=== PATIENT | male | born 1985 | race Caucasian/White ===

== ENCOUNTER 2017-11-20 12:30 | Emergency (ER) | payer BC ==
[2017-11-20 13:59] LABS: ALT/SGPT 37 U/L (12-78); AST/SGOT 34 U/L (15-37); Absolute Lymphocytes (CBC) 2.8 K/uL (0.7-4.9); Absolute Monocytes 0.7 K/uL (0.1-1.3); Absolute Neutrophil 4.5 K/uL (1.8-8.0); Albumin 3.9 g/dL (3.4-5.0); Alkaline Phosphatase 111 U/L (45-117); BUN Blood Urea Nitrogen 13 mg/dL (7-18); Basophils % 0.5 % (0-1.3); Bicarbonate 29 mmol/L (21-32); Bilirubin Direct 0.2 mg/dL (0-0.2); Bilirubin Total 0.6 mg/dL (0.2-1.0); Eosinophils % 1.6 % (0-4.4); Glucose Level 101 mg/dL (74-106); Hematocrit 42.7 % (39.6-49.0); Lipase 67 U/L (73-393); Lymphocytes % 34.4 % (15.3-44.8); MCH 29.9 pg (27.0-35.0); MCV 87.5 fL (80-100); MPV 8.1 fL (7.6-11.3); Monocytes % 8.8 % (3.3-12.3); Potassium 4.2 mmol/L (3.5-5.1); Protein, Total 7.8 g/dL (6.4-8.2); RBC Red Blood Cell Count 4.88 M/uL (4.33-5.43); Sodium Level 141 mmol/L (136-145)
--- NOTE | 2017-11-20 14:30 | RAD REPORT ---
EXAM DESCRIPTION: CT - Abdomen Pelvis W Contrast - 11/20/2017 2:09 pm CLINICAL HISTORY: Back pain, abdominal pain for 3 days, nausea and diarrhea, history pancreatitis COMPARISON: March 2017 TECHNIQUE: Biphasic, helical CT imaging of the abdomen and pelvis was performed following 100 ml non -ionic IV contrast. No oral contrast administered. All CT scans are performed using dose optimization technique as appropriate and may include automated exposure control or mA/KV adjustment according to patient size. FINDINGS: No suspicious findings in the lung bases. The liver and spleen show no suspicious findings. There is fat infiltration into the pancreatic paren chyma. There is a trace amount of edema in the peripancreatic tissues at the head body junction. This is a minimal finding but could indicate a very mild acute pancreatitis. The amount of soft tissue is not substantially different from March. Correlation is needed with any laboratory or exam finding s for pancreatitis. Gallbladder and biliary tree are also without suspicious finding. Symmetric renal function is seen with no hydronephrosis or suspicious renal mass. No bladder abnormal ity. No dilated bowel loops or bowel wall thickening. No free air, free fluid or pneumatosis. No hernia, mass or bulky lymphadenopathy. No adrenal abnormality. No suspicious bony findings. IMPRESSION: Trace amount of stranding is present in the peripancreatic tissues along the anterior he ad-body junction. The amount of soft tissue in this region has not changed. Very minimal pancreatitis would be possible and can be correlated with clinical and laboratory findin gs.
--- NOTE | 2017-11-20 14:45 | EDPHYS ---
Physician Documentation [facility] Name: Juvencio Cole Age: 31 yrs Sex: Male : 1985 Arrival Date: 11/20/2017 Time: 12:32 Bed 4 Private MD: Kevin Renteria H ED Physician Cuate Cortez HPI: 11/20 13:54 This 31 yrs old Male presents to ER via Ambulatory with complaints of jr8 Abdominal Pain, Back Pain, Diarrhea, Nausea. 13:54 The patient presents with abdominal pain in the upper abdomen. Onset: The jr8 symptoms/episode began/occurred gradually, 2 day(s) ago. The symptoms radiate to back. Associated signs and symptoms: Pertinent positives: nausea, vomiting, and diarrhea. The symptoms are described as steady, vague. Modifying factors: The symptoms are alleviated by nothing, the symptoms are aggravated by nothing. Severity of pain: At its worst the pain was moderate in the emergency department the pain is unchanged. The patient has experienced similar episodes in the past, a few times. The patient has not recently seen a physician. Patient stated that he has had diarrhea for the past week but now has resolved. Started with n/v and abdominal pain now. History of pancreatitis. Stated that he has not had a flare up in a while but feels that this pain is what he has experienced in the past . Historical: - Allergies: 12:52 NKA; iw - Home Meds: 12:52 Effexor XR Oral [Active]; Omeprazole Oral [Active]; atorvastatin oral oral [Active]; iw nabumetone oral oral [Active]; - PMHx: 12:52 Pancreatitis; iw - PSHx: 12:52 None; iw - Immunization history:: Adult Immunizations up to date. - Social history:: Smoking status: Patient/guardian denies using tobacco. - Ebola Screening: : No symptoms or risks identified at this time. ROS: 13:54 Eyes: Negative for injury, pain, redness, and discharge, ENT: Negative for injury, jr8 pain, and discharge, Neck: Negative for injury, pain, and swelling, Cardiovascular: Negative for chest pain, palpitations, and edema, Respiratory: Negative for shortness of breath, cough, wheezing, and pleuritic chest pain, Back: Negative for injury and pain, MS/Extremity: Negative for injury and deformity, Skin: Negative for injury, rash, and discoloration, Neuro: Negative for headache, weakness, numbness, tingling, and seizure. 13:54 Abdomen/GI: Positive for abdominal pain, nausea, vomiting, and diarrhea, Negative for abdominal distension, anorexia, dysphagia, hematemesis, black/tarry stool, rectal pain, rectal bleeding, bowel incontinence, flatulence. Exam: 13:54 Eyes: Pupils equal round and reactive to light, extra-ocular motions intact. Lids and jr8 lashes normal. Conjunctiva and sclera are non-icteric and not injected. Cornea within normal limits. Periorbital areas with no swelling, redness, or edema. ENT: Nares patent. No nasal discharge, no septal abnormalities noted. Tympanic membranes are normal and external auditory canals are clear. Oropharynx with no redness, swelling, or masses, exudates, or evidence of obstruction, uvula midline. Mucous membranes moist. Neck: Trachea midline, no thyromegaly or masses palpated, and no cervical lymphadenopathy. Supple, full range of motion without nuchal rigidity, or vertebral point tenderness. No Meningismus. Cardiovascular: Regular rate and rhythm with a normal S1 and S2. No gallops, murmurs, or rubs. Normal PMI, no JVD. No pulse deficits. Respiratory: Lungs have equal breath sounds bilaterally, clear to auscultation and percussion. No rales, rhonchi or wheezes noted. No increased work of breathing, no retractions or nasal flaring. Back: No spinal tenderness. No costovertebral tenderness. Full range of motion. Skin: Warm, dry with normal turgor. Normal color with no rashes, no lesions, and no evidence of cellulitis. MS/ Extremity: Pulses equal, no cyanosis. Neurovascular intact. Full, normal range of motion. Neuro: Awake and alert, GCS 15, oriented to person, place, time, and situation. Cranial nerves II-XII grossly intact. Motor strength 5/5 in all extremities. Sensory grossly intact. Cerebellar exam normal. Normal gait. 13:54 Abdomen/GI: Inspection: abdomen appears normal, Bowel sounds: active, all quadrants, Palpation: soft, in all quadrants, mild abdominal tenderness, in the mid upper abdomen, right lower quadrant , mass, is not appreciated, rebound tenderness, is not appreciated, voluntary guarding, is not appreciated, involuntary guarding, is not appreciated, no appreciated organomegaly, Indicators: McBurney's point is not tender, Adler's sign is negative, Rovsing's sign is negative, Obturator sign is negative, Psoas sign is negative, Liver: tenderness, is not appreciated. Vital Signs: 12:50 BP 126 / 83; Pulse 90; Resp 16; Temp 97.5(TE); Pulse Ox 98% on R/A; Weight 120.2 kg; iw Height 6 ft. 0 in. (182.88 cm); Pain 6/10; 13:30 BP 127 / 81; Pulse 83; Resp 16; Pulse Ox 97% ; jl7 14:00 BP 123 / 83; Pulse 86; Resp 16; Pulse Ox 97% ; jl7 15:01 BP 126 / 83; Pulse 83; Resp 16; Pulse Ox 97% ; jl7 12:50 Body Mass Index 35.94 (120.20 kg, 182.88 cm) iw MDM: 12:53 Patient medically screened. jr8 14:39 Data reviewed: vital signs, nurses notes, lab test result(s), radiologic studies, CT jr8 scan, and as a result, I will discharge patient. Data interpreted: Pulse oximetry: on room air is 97 %. Interpretation: normal. Counseling: I had a detailed discussion with the patient and/or guardian regarding: the historical points, exam findings, and any diagnostic results supporting the discharge/admit diagnosis, lab results, radiology results, the need for outpatient follow up, a chief of police, to return to the emergency department if symptoms worsen or persist or if there are any questions or concerns that arise at home. Response to treatment: the patient's symptoms have markedly improved after treatment, patient is well hydrated. ED course: Discussed with patient that he has mild pancreatitis again. Not significant enough for admission at this time. Recommend clear liquids for next 48-72 hours and then advance as tolerated. Will put on nausea and pain medicine in the meantime . 11/20 12:53 Order name: Basic Metabolic Panel; Complete Time: 14:8 11/20 12:53 Order name: CBC with Diff; Complete Time: 14:8 11/20 12:53 Order name: Creatinine for Radiology; Complete Time: 13:57 11/20 12:53 Order name: Hepatic Function; Complete Time: 14:8 11/20 12:53 Order name: Lipase; Complete Time: 14:09 8 11/20 13:14 Order name: CT Abd/Pelvis - W/Contrast; Complete Time: 14:33 8 11/20 12:53 Order name: IV Saline Lock; Complete Time: 13:34 8 11/20 12:53 Order name: Labs collected and sent; Complete Time: 13:34 8 Administered Medications: 13:30 Drug: NS 0.9% 1000 ml Route: IV; Rate: 1000 ml; Site: right antecubital; 7 14:30 Follow up: Response: No adverse reaction; IV Status: Completed infusion jl7 Disposition: 18:54 Co-signature as Attending Physician, Cuate Cortez MD I agree with the assessment and kdr plan of care. Disposition: 11/20/17 14:44 Discharged to Home. Impression: Acute pancreatitis. - Condition is Stable. - Discharge Instructions: Acute Pancreatitis. - Prescriptions for Tylenol- Codeine #3 300-30 mg Oral Tablet - take 2 tablets by ORAL route every 6 hours As needed; 20 tablet. Zofran 4 mg Oral Tablet - take 1 tablet by ORAL route every 12 hours As needed; 20 tablet. - Medication Reconciliation Form, Thank You Letter, Antibiotic Education, Prescription Opioid Use form. - Follow up: Kevin Renteria MD; When: 48 Hours; Reason: Recheck today's complaints, Continuance of care, Re-evaluation by your physician. - Problem is new. - Symptoms have improved. Signatures: Dispatcher [employer] EDHI Cuate Cortez MD MD [facility] Rebecca Lopes RN RN Anmol He PA PA jr8 Simon Yo RN RN jl7 Corrections: (The following items were deleted from the chart) 15:02 14:44 11/20/2017 14:44 Discharged to Home. Impression: Acute pancreatitis. Condition is jl7 Stable. Forms are Medication Reconciliation Form, Thank You Letter, Antibiotic Education, Prescription Opioid Use. Follow up: Kevin Renteria; When: 48 Hours; Reason: Recheck today's complaints, Continuance of care, Re-evaluation by your physician. Problem is new. Symptoms have improved. jr8
--- NOTE | 2017-11-20 14:45 | ER ---
Nurse's Notes [facility] Name: Juvencio Cole Age: 31 yrs Sex: Male : 1985 Arrival Date: 11/20/2017 Time: 12:32 Bed 4 Private MD: Kevin Renteria H Diagnosis: Acute pancreatitis Presentation: 11/20 12:48 Presenting complaint: Patient states: low back pain, abd pain X 3 days, also has nausea iw and diarrhea X 1 week, hx of pancreatitis , no vomiting. Transition of care: patient was not received from another setting of care. Onset of symptoms was November 17, 2017. Risk Assessment: Do you want to hurt yourself or someone else? Patient reports no desire to harm self or others. Initial Sepsis Screen: Does the patient meet any 2 criteria? No. Patient's initial sepsis screen is negative. Does the patient have a suspected source of infection? No. Patient's initial sepsis screen is negative. Care prior to arrival: None. 12:48 Method Of Arrival: Ambulatory iw 12:48 Acuity: CHUCK 3 iw Historical: - Allergies: 12:52 NKA; iw - Home Meds: 12:52 Effexor XR Oral [Active]; Omeprazole Oral [Active]; atorvastatin oral oral [Active]; iw nabumetone oral oral [Active]; - PMHx: 12:52 Pancreatitis; iw - PSHx: 12:52 None; iw - Immunization history:: Adult Immunizations up to date. - Social history:: Smoking status: Patient/guardian denies using tobacco. - Ebola Screening: : No symptoms or risks identified at this time. Screenin:00 Abuse screen: Denies threats or abuse. Denies injuries from another. Nutritional jl7 screening: No deficits noted. Tuberculosis screening: No symptoms or risk factors identified. Fall Risk IV access (20 points). Total Turcios Fall Scale indicates No Risk (0-24 pts). Assessment: 13:00 General: Appears in no apparent distress. uncomfortable, Behavior is calm, cooperative, jl7 appropriate for age. Pain: Complains of pain in epigastric area Pain radiates to low back area Pain currently is 6 out of 10 on a pain scale. Quality of pain is described as dull, Is continuous. Neuro: Level of Consciousness is awake, alert, obeys commands, Oriented to person, place, time, situation. Cardiovascular: Patient's skin is warm and dry. Respiratory: Airway is patent Respiratory effort is even, unlabored, Respiratory pattern is regular, symmetrical. GI: Bowel sounds present X 4 quads. Abd is soft and non tender. : No signs and/or symptoms were reported regarding the genitourinary system. EENT: No signs and/or symptoms were reported regarding the EENT system. Derm: Skin is pink, warm \T\ dry. Musculoskeletal: No signs and/or symptoms reported regarding the musculoskeletal system. 14:00 Reassessment: No changes from previously documented assessment. Patient and/or family jl7 updated on plan of care and expected duration. Pain level reassessed. Patient is alert, oriented x 3, equal unlabored respirations, skin warm/dry/pink. Vital Signs: 12:50 BP 126 / 83; Pulse 90; Resp 16; Temp 97.5(TE); Pulse Ox 98% on R/A; Weight 120.2 kg; iw Height 6 ft. 0 in. (182.88 cm); Pain 6/10; 13:30 BP 127 / 81; Pulse 83; Resp 16; Pulse Ox 97% ; jl7 14:00 BP 123 / 83; Pulse 86; Resp 16; Pulse Ox 97% ; jl7 15:01 BP 126 / 83; Pulse 83; Resp 16; Pulse Ox 97% ; jl7 12:50 Body Mass Index 35.94 (120.20 kg, 182.88 cm) iw ED Course: 12:32 Patient arrived in ED. rg4 12:32 Kevin Renteria MD is Private Physician. rg4 12:36 Cuate Cortez MD is Attending Physician. kdr 12:39 Anmol Hines PA is PHCP. jr8 12:50 Triage completed. iw 12:50 Arm band placed on. iw 12:56 Simon Yo, BIJU is Primary Nurse. jl7 13:10 Missed attempt(s): 20 gauge in right antecubital area. Bleeding controlled, band aid jl7 applied, catheter tip intact. 13:10 No provider procedures requiring assistance completed. jl7 13:18 Radiology exam delayed due to lab results not completed at this time. (BUN/Creatinine). vr 13:33 Initial lab(s) drawn, by me, sent to lab. Inserted saline lock: 22 gauge in right jb1 antecubital area, using aseptic technique. Blood collected. 13:[address] via wheelchair. vr 14:00 Patient has correct armband on for positive identification. Placed in gown. Bed in low jl7 position. Call light in reach. Side rails up X 1. Pulse ox on. NIBP on. Warm blanket given. 14:07 CT completed. Patient tolerated procedure well. Patient moved back from CT. vr 14:09 CT Abd/Pelvis - W/Contrast In Process Unspecified. EDMS 14:44 Kevin Renteria MD is Referral Physician. jr8 15:01 IV discontinued, intact, bleeding controlled, No redness/swelling at site. Pressure jl7 dressing applied. Administered Medications: 13:30 Drug: NS 0.9% 1000 ml Route: IV; Rate: 1000 ml; Site: right antecubital; jl7 14:30 Follow up: Response: No adverse reaction; IV Status: Completed infusion jl7 Outcome: 14:44 Discharge ordered by . jr8 15:01 Discharged to home ambulatory. jl7 15:01 Condition: stable 15:01 Discharge instructions given to patient, Instructed on discharge instructions, follow up and referral plans. medication usage, Demonstrated understanding of instructions, follow-up care, medications, Prescriptions given X 2. 15:02 Patient left the ED. jl7 Signatures: Dispatcher [employer] EDNE Juan Champagne jb1 Cuate Cortez MD MD kdr Williams, Irene, Jeannine Mckeon RN vr Anmol Hines PA PA jr8 Garcia, Rubi rg4 Leal, Jahala, RN RN jl7
[2017-11-20 15:07] VITALS: TEMP 97.5
[2017-11-20 15:08] VITALS: O2SAT 97
[2017-11-20 15:10] VITALS: BP 126/83
== END 2017-11-20 15:02 | disposition home or self-care (01) ==
LOC: ER 12:30
DX: K85.90 Acute pancreatitis without necrosis or infection, unspecified (principal)
CPT/HCPCS: 36415; 74177; 80048; 80076; 83690; 85025; 96360; 99284; Q9967

== ENCOUNTER 2017-12-24 05:48 | Inpatient (IN) | payer BC ==
[2017-12-24 06:23] LABS: Absolute Lymphocytes (CBC) 2.1 K/uL (0.7-4.9); Absolute Monocytes 1.4 K/uL (0.1-1.3); Absolute Neutrophil 10.1 K/uL (1.8-8.0); Basophils % 0.4 % (0-1.3); Lymphocytes % 15.1 % (15.3-44.8); MCH 30.8 pg (27.0-35.0); Monocytes % 9.9 % (3.3-12.3); RBC Red Blood Cell Count 4.77 M/uL (4.33-5.43)
[2017-12-24 06:28] LABS: Albumin 3.7 g/dL (3.4-5.0); Bilirubin Direct 0.3 mg/dL (0-0.2); Bilirubin Total 0.8 mg/dL (0.2-1.0); Potassium 3.8 mmol/L (3.5-5.1); Protein, Total 7.7 g/dL (6.4-8.2)
[2017-12-24] MEDS ORDERED: FENTANYL CITR 100 MCG/2 ML ONE (07:14)
[2017-12-24] MEDS ORDERED: NA CHLORIDE 0.9% 1,000 ML ONE (07:14)
[2017-12-24] MEDS ORDERED: PROMETHAZINE 25 MG/ML VIAL ONE (07:20)
[2017-12-24 07:45] LABS: Urine Blood TRACE (NEG); Urine Glucose NEGATIVE (NEG); Urine Protein NEGATIVE (NEG); Urine Specific Gravity 1.025 (1.005-1.030)
[2017-12-24 07:49] LABS: Urine Amorphous Sediment 1+ /HPF (NONE SEEN); Urine Bacteria NONE SEEN /HPF (NONE SEEN); Urine Culture Reflex Order NOT NEEDED; Urine Mucus MOD /HPF (NONE SEEN); Urine RBC <5 /HPF (NONE SEEN)
--- NOTE | 2017-12-24 09:04 | RAD REPORT ---
EXAM DESCRIPTION: CTAbdomen Pelvis W Contrast - 12/24/2017 8:40 am CLINICAL HISTORY: Abdominal pain. ABD PAIN COMPARISON: Abdomen Pelvis W Contrast dated 11/20/2017; Abdomen Pelvis W Contrast dated 04/10/2017 TECHNIQUE: Biphasic CT imaging of the abdomen and pelvis was performed with 100 ml non-ionic IV cont rast. All CT scans are performed using dose optimization technique as appropriate and may include automated exposure control or mA/KV adjustment according to patient size. FINDINGS: The lung bases are clear. Mild diffuse fatty liver is present. The spleen, adrenal glands and kidneys are within normal limits. Pancreatic atrophy is present. No bowel obstruction, free air, free fluid or abscess. Prominent thickening of the colon is present w ith multiple pericolonic lymph nodes seen. The findings are most severe in the region of the cecum bu t involves the ascending colon and transverse colon. The appendix is normal. No suspicious bony findings. IMPRESSION: Mild to moderate colitis. Fatty liver.
--- NOTE | 2017-12-24 09:10 | ER ---
Nurse's Notes [facility] Name: Juvencio Cole Age: 32 yrs Sex: Male : 1985 Arrival Date: 12/24/2017 Time: 05:49 Bed 21 Private MD: Diagnosis: Left sided colitis with rectal bleeding Presentation: 12/24 05:55 Presenting complaint: Patient states: States bloody stools since 1945, bright red lp1 blood; Diarrhea x4, vomited x1; Mid abdominal pain; Denies any fever. Transition of care: patient was not received from another setting of care. Onset of symptoms was December 23, 2017 at 19:45. Risk Assessment: Do you want to hurt yourself or someone else? Patient reports no desire to harm self or others. Initial Sepsis Screen: Does the patient meet any 2 criteria? No. Patient's initial sepsis screen is negative. Does the patient have a suspected source of infection? No. Patient's initial sepsis screen is negative. Care prior to arrival: None. 05:55 Method Of Arrival: Ambulatory lp1 05:55 Acuity: CHUCK 3 lp1 Triage Assessment: 06:02 General: Appears in no apparent distress. Behavior is calm, cooperative. Pain: ak1 Complains of pain in abdomen. EENT: No signs and/or symptoms were reported regarding the EENT system. Neuro: No deficits noted. Cardiovascular: No deficits noted. Respiratory: No deficits noted. GI: Abdomen is round non-distended, Reports diarrhea, bloody stool, nausea, vomiting, since yesterday. : No signs and/or symptoms were reported regarding the genitourinary system. Derm: No signs and/or symptoms reported regarding the dermatologic system. Musculoskeletal: No signs and/or symptoms reported regarding the musculoskeletal system. Historical: - Allergies: 05:58 NKA; lp1 - Home Meds: 05:58 atorvastatin Oral [Active]; Effexor XR Oral [Active]; Omeprazole Oral [Active]; lp1 - PMHx: 05:58 Pancreatitis; Hyperlipidemia; GERD; lp1 - PSHx: 05:58 None; lp1 - Immunization history:: Adult Immunizations up to date. - Social history:: Smoking status: Patient/guardian denies using tobacco. - Ebola Screening: : No symptoms or risks identified at this time. Screenin:59 Abuse screen: Denies threats or abuse. Denies injuries from another. Nutritional lp1 screening: No deficits noted. Tuberculosis screening: No symptoms or risk factors identified. Fall Risk None identified. Assessment: 06:03 Reassessment: Patient appears in no apparent distress at this time. see triage ak1 assessment. 06:24 Reassessment: Patient appears in no apparent distress at this time. No changes from ak1 previously documented assessment. Patient is alert, oriented x 3, equal unlabored respirations, skin warm/dry/pink. pt attempted to give a stool sample but was unsuccessful. will continue to monitor. . 07:00 Reassessment: report given to Soha Carter RN and Simon IVY. ak1 07:21 Reassessment: Patient appears in no apparent distress at this time. No changes from tw2 previously documented assessment. Patient and/or family updated on plan of care and expected duration. Pain level reassessed. Patient is alert, oriented x 3, equal unlabored respirations, skin warm/dry/pink. notified CAT scan that pt has completed contrast at this time. 07:45 Reassessment: Patient appears in no apparent distress at this time. No changes from tw2 previously documented assessment. Patient and/or family updated on plan of care and expected duration. Pain level reassessed. Patient is alert, oriented x 3, equal unlabored respirations, skin warm/dry/pink. 08:33 Reassessment: Patient appears in no apparent distress at this time. Patient and/or tw2 family updated on plan of care and expected duration. Pain level reassessed. Patient is alert, oriented x 3, equal unlabored respirations, skin warm/dry/pink. Patient states feeling better. 09:44 Reassessment: per orders, Flagyl Abx was ordered and administered PRIOR to blood tw2 cultures being ordered. 09:48 Reassessment: Patient appears in no apparent distress at this time. Patient and/or tw2 family updated on plan of care and expected duration. Pain level reassessed. Patient is alert, oriented x 3, equal unlabored respirations, skin warm/dry/pink. Patient states feeling better. 10:50 Reassessment: Patient appears in no apparent distress at this time. No changes from tw2 previously documented assessment. Patient and/or family updated on plan of care and expected duration. Pain level reassessed. Patient is alert, oriented x 3, equal unlabored respirations, skin warm/dry/pink. Vital Signs: 05:58 BP 137 / 78; Pulse 99; Resp 18; Temp 99.3; Pulse Ox 94% on R/A; Weight 120.2 kg; Height lp1 6 ft. 0 in. (182.88 cm); Pain 7/10; 06:25 BP 132 / 87; Pulse 92; Resp 18; Pulse Ox 97% on R/A; mt 06:54 BP 128 / 83; Pulse 85; Resp 18; Pulse Ox 96% on R/A; ak1 07:43 BP 132 / 80; Pulse 60; Resp 17; Pulse Ox 95% on R/A; tw2 08:32 BP 119 / 71; Pulse 96; Resp 17; Pulse Ox 100% on R/A; tw2 09:47 BP 103 / 52; Pulse 85; Resp 17; Pulse Ox 100% on R/A; tw2 10:50 BP 114 / 68; Pulse 84; Resp 17; Pulse Ox 96% on R/A; tw2 11:40 BP 115 / 73; Pulse 86; Resp 17; Pulse Ox 95% on R/A; tw2 05:58 Body Mass Index 35.94 (120.20 kg, 182.88 cm) lp1 ED Course: 05:49 Patient arrived in ED. ds1 05:54 Sarai Robert RN is Primary Nurse. ak1 05:57 Triage completed. lp1 05:59 Arm band placed on left wrist. lp1 06:01 Patient has correct armband on for positive identification. Placed in gown. Bed in low ak1 position. Call light in reach. Side rails up X 1. Pulse ox on. NIBP on. Warm blanket given. 06:01 Inserted saline lock: 20 gauge in right antecubital area, using aseptic technique. mt Blood collected. 06:06 Soraida Vyas FNP-C [facility]. snw 06:06 Zachary Albert MD is Attending Physician. snw 07:21 Primary Nurse role handed off by Sarai Robert, BIJU tw2 07:21 Soha Mann RN is Primary Nurse. tw2 07:23 Urine collected: clean catch specimen, clear, Stool sent to lab. jl7 08:38 CT completed. Patient tolerated procedure well. Patient moved to CT via wheelchair. sj Patient moved back from CT. 08:40 CT Abd/Pelvis - W/Contrast In Process Unspecified. EDMS 09:09 Luigi Nixon DO is Hospitalizing Provider. snw 11:41 Awaiting: attempted to call report, nurse is getting another pt and cannot take report tw2 at this time. 12:34 No provider procedures requiring assistance completed. Patient admitted, IV remains in tw2 place. Administered Medications: 07:10 Drug: fentaNYL (PF) 25 mcg Route: IVP; Site: right antecubital; tw2 08:10 Follow up: Response: No adverse reaction; Pain is decreased tw2 07:12 Drug: NS 0.9% 1000 ml Route: IV; Rate: 125 ml/hr; Site: right antecubital; tw2 12:33 Follow up: IV Status: Infusion continued upon admission tw2 07:18 Drug: Phenergan 12.5 mg Route: IVP; Site: right antecubital; tw2 09:16 Follow up: Response: No adverse reaction; Nausea is decreased tw2 09:15 Drug: Flagyl 500 mg Volume: 100 ml; Route: IVPB; Rate: 200 ml/hr; Infused Over: 30 tw2 mins; Site: right antecubital; 09:46 Follow up: Response: No adverse reaction; No adverse reaction, blood cultures were tw2 ordered AFTER order to administer abx; IV Status: Completed infusion 09:26 Drug: morphine 4 mg Route: IVP; Site: right antecubital; jl7 09:48 Follow up: Response: No adverse reaction; Pain is decreased tw2 10:16 Drug: Zofran 4 mg {Note: cipro was paused prior to, iv access was flushed with 10 ml NS tw2 before and after administration.} Route: IVP; Site: right antecubital; 11:06 Follow up: Response: No adverse reaction; Nausea is decreased tw2 10:30 Drug: Cipro 400 mg Volume: 200 ml; Route: IVPB; Infused Over: 60 mins; Site: right tw2 antecubital; 11:41 Follow up: Response: No adverse reaction; IV Status: Completed infusion tw2 Outcome: 09:09 Decision to Hospitalize by Provider. snw 12:34 Admitted to Med/surg accompanied by tech, via wheelchair, room 411, Report called to tw2 BIJU Ruffin 12:34 Condition: stable 12:34 Instructed on the need for admit. 12:44 Patient left the ED. jairo Signatures: Dispatcher [employer] EDSoraida Bejarano, END USER CONSULTANT-C END USER CONSULTANT-Mariya Rogers, Tanya ds1 Cassandra Vizcaino RN RN lp1 Sarai Robert RN RN ak1 Soha Mann RN RN tw2 Simon Yo RN RN jl7 Palma Lujan tx
--- NOTE | 2017-12-24 09:10 | EDPHYS ---
Physician Documentation [facility] Name: Juvencio Cole Age: 32 yrs Sex: Male : 1985 Arrival Date: 12/24/2017 Time: 05:49 Bed 21 Private MD: ED Physician Zachary Albert HPI: 12/24 07:24 This 32 yrs old Male presents to ER via Ambulatory with complaints of Bloody snw Stools, Abdominal Pain, Vomiting. 07:24 The patient presents with abdominal pain in the epigastric area, in the upper abdomen. snw Onset: The symptoms/episode began/occurred gradually, 1 week(s) ago, and became worse and became persistent. The symptoms do not radiate. Associated signs and symptoms: Pertinent positives: nausea, vomiting, and diarrhea, bloody stools. The symptoms are described as crampy. Severity of pain: At its worst the pain was moderate severe. The patient has experienced similar episodes in the past, Pt with hx of pancreatitis, sees Dr. Renteria. No gallstones, no ETOH. . It is unknown whether or not the patient has recently seen a physician. Historical: - Allergies: 05:58 NKA; lp1 - Home Meds: 05:58 atorvastatin Oral [Active]; Effexor XR Oral [Active]; Omeprazole Oral [Active]; lp1 - PMHx: 05:58 Pancreatitis; Hyperlipidemia; GERD; lp1 - PSHx: 05:58 None; lp1 - Immunization history:: Adult Immunizations up to date. - Social history:: Smoking status: Patient/guardian denies using tobacco. - Ebola Screening: : No symptoms or risks identified at this time. ROS: 07:23 Constitutional: Negative for fever, chills, and weight loss, Eyes: Negative for injury, snw pain, redness, and discharge, ENT: Negative for injury, pain, and discharge, Neck: Negative for injury, pain, and swelling, Cardiovascular: Negative for chest pain, palpitations, and edema, Respiratory: Negative for shortness of breath, cough, wheezing, and pleuritic chest pain, Back: Negative for injury and pain, : Negative for injury, bleeding, discharge, and swelling, MS/Extremity: Negative for injury and deformity, Skin: Negative for injury, rash, and discoloration, Neuro: Negative for headache, weakness, numbness, tingling, and seizure. 07:23 Abdomen/GI: Positive for abdominal pain, nausea, vomiting, and diarrhea, abdominal cramps, of the epigastric area, right upper quadrant and left upper quadrant. Exam: 07:23 Constitutional: This is a well developed, well nourished patient who is awake, alert, snw and in no acute distress. Head/Face: Normocephalic, atraumatic. Eyes: Pupils equal round and reactive to light, extra-ocular motions intact. Lids and lashes normal. Conjunctiva and sclera are non-icteric and not injected. Cornea within normal limits. Periorbital areas with no swelling, redness, or edema. ENT: Nares patent. No nasal discharge, no septal abnormalities noted. Tympanic membranes are normal and external auditory canals are clear. Oropharynx with no redness, swelling, or masses, exudates, or evidence of obstruction, uvula midline. Mucous membranes moist. Neck: Trachea midline, no thyromegaly or masses palpated, and no cervical lymphadenopathy. Supple, full range of motion without nuchal rigidity, or vertebral point tenderness. No Meningismus. Chest/axilla: Normal chest wall appearance and motion. Nontender with no deformity. No lesions are appreciated. Cardiovascular: Regular rate and rhythm with a normal S1 and S2. No gallops, murmurs, or rubs. Normal PMI, no JVD. No pulse deficits. Respiratory: Lungs have equal breath sounds bilaterally, clear to auscultation and percussion. No rales, rhonchi or wheezes noted. No increased work of breathing, no retractions or nasal flaring. Back: No spinal tenderness. No costovertebral tenderness. Full range of motion. Male : Normal genitalia with no discharge or lesions. Skin: Warm, dry with normal turgor. Normal color with no rashes, no lesions, and no evidence of cellulitis. MS/ Extremity: Pulses equal, no cyanosis. Neurovascular intact. Full, normal range of motion. Neuro: Awake and alert, GCS 15, oriented to person, place, time, and situation. Cranial nerves II-XII grossly intact. Motor strength 5/5 in all extremities. Sensory grossly intact. Cerebellar exam normal. Normal gait. Psych: Awake, alert, with orientation to person, place and time. Behavior, mood, and affect are within normal limits. 07:23 Abdomen/GI: Inspection: abdomen appears normal, Bowel sounds: hyperactive, Palpation: mild abdominal tenderness, in the epigastric area, right upper quadrant and left upper quadrant, bloody, mucoid stool. Vital Signs: 05:58 BP 137 / 78; Pulse 99; Resp 18; Temp 99.3; Pulse Ox 94% on R/A; Weight 120.2 kg; Height lp1 6 ft. 0 in. (182.88 cm); Pain 7/10; 06:25 BP 132 / 87; Pulse 92; Resp 18; Pulse Ox 97% on R/A; mt 06:54 BP 128 / 83; Pulse 85; Resp 18; Pulse Ox 96% on R/A; ak1 07:43 BP 132 / 80; Pulse 60; Resp 17; Pulse Ox 95% on R/A; tw2 08:32 BP 119 / 71; Pulse 96; Resp 17; Pulse Ox 100% on R/A; tw2 09:47 BP 103 / 52; Pulse 85; Resp 17; Pulse Ox 100% on R/A; tw2 10:50 BP 114 / 68; Pulse 84; Resp 17; Pulse Ox 96% on R/A; tw2 11:40 BP 115 / 73; Pulse 86; Resp 17; Pulse Ox 95% on R/A; tw2 05:58 Body Mass Index 35.94 (120.20 kg, 182.88 cm) lp1 MDM: 06:06 Patient medically screened. snw 09:08 Data reviewed: vital signs, nurses notes. Data interpreted: Pulse oximetry: on room air snw is 100 %. Interpretation: normal. Counseling: I had a detailed discussion with the patient and/or guardian regarding: the historical points, exam findings, and any diagnostic results supporting the discharge/admit diagnosis, lab results, radiology results, the need for further work-up and treatment in the hospital. Physician consultation: Luigi Nixon DO was called at 09:08, was contacted at 09:08, regarding admission, to the medical/surgical unit. 09:23 Physician consultation: and will see patient in ED, would like further tests performed, snw Blood culture, urine culture, procalcitonin. 12/24 05:54 Order name: Amylase, Serum; Complete Time: 06:36 ak1 12/24 05:54 Order name: Basic Metabolic Panel; Complete Time: 06:36 ct12/24 05:54 Order name: CBC with Diff; Complete Time: 06:36 ct12/24 05:54 Order name: Creatinine for Radiology; Complete Time: 06:36 ct12/24 05:54 Order name: Hepatic Function; Complete Time: 06:36 ct12/24 05:54 Order name: Lipase; Complete Time: 06:36 [facility] 12/24 05:54 Order name: Urine Microscopic Only; Complete Time: 07:59 [facility] 12/24 07:17 Order name: Occult Blood [facility] 12/24 07:17 Order name: Fecal Leukocyte Stain [facility] 12/24 07:17 Order name: CDIFF [facility] 12/24 07:18 Order name: Stool Culture [facility] 12/24 07:35 Order name: Urine Dipstick--Ancillary (enter results); Complete Time: 07:47 bd 12/24 09:23 Order name: Blood Culture Adult (2) [facility] 12/24 09:23 Order name: Urine Culture [facility] 12/24 05:54 Order name: IV Saline Lock; Complete Time: 06:00 ct12/24 05:54 Order name: Labs collected and sent; Complete Time: 06:00 ct12/24 05:54 Order name: Urine Dipstick-Ancillary (obtain specimen); Complete Time: 07:23 [facility] 12/24 06:57 Order name: NPO; Complete Time: 07:19 [facility] 12/24 06:57 Order name: CT Abd/Pelvis - W/Contrast; Complete Time: 09:05 [facility] 12/24 09:23 Order name: Procalcitonin [facility] 12/24 11:27 Order name: Procalcitonin; Complete Time: 11:31 EDMS Administered Medications: 07:10 Drug: fentaNYL (PF) 25 mcg Route: IVP; Site: right antecubital; tw2 08:10 Follow up: Response: No adverse reaction; Pain is decreased tw2 07:12 Drug: NS 0.9% 1000 ml Route: IV; Rate: 125 ml/hr; Site: right antecubital; tw2 12:33 Follow up: IV Status: Infusion continued upon admission tw2 07:18 Drug: Phenergan 12.5 mg Route: IVP; Site: right antecubital; tw2 09:16 Follow up: Response: No adverse reaction; Nausea is decreased tw2 09:15 Drug: Flagyl 500 mg Volume: 100 ml; Route: IVPB; Rate: 200 ml/hr; Infused Over: 30 tw2 mins; Site: right antecubital; 09:46 Follow up: Response: No adverse reaction; No adverse reaction, blood cultures were tw2 ordered AFTER order to administer abx; IV Status: Completed infusion 09:26 Drug: morphine 4 mg Route: IVP; Site: right antecubital; jl7 09:48 Follow up: Response: No adverse reaction; Pain is decreased tw2 10:16 Drug: Zofran 4 mg {Note: cipro was paused prior to, iv access was flushed with 10 ml NS tw2 before and after administration.} Route: IVP; Site: right antecubital; 11:06 Follow up: Response: No adverse reaction; Nausea is decreased tw2 10:30 Drug: Cipro 400 mg Volume: 200 ml; Route: IVPB; Infused Over: 60 mins; Site: right tw2 antecubital; 11:41 Follow up: Response: No adverse reaction; IV Status: Completed infusion tw2 Disposition: 12/24/17 09:09 Hospitalization ordered by Luigi Nixon for Inpatient Admission. Preliminary diagnosis is Left sided colitis with rectal bleeding. - Bed requested for Telemetry/MedSurg (Inpatient). - Status is Inpatient Admission. jl7 - Condition is Stable. - Problem is an acute exacerbation. - Symptoms have worsened. UTI on Admission? No Addendum: 12/26/2017 07:10 Co-signature as Attending Physician, Zachary Albert MD. r n Signatures: Dispatcher [employer] EDMS Angie Jackson bd Soraida Vyas, APPLICATION ENGINEER-C APPLICATION ENGINEER-Csnw Zachary Albert MD MD rn Calderon, Audri, RN RN aa5 Cassandra Vizcaino, RN RN lp1 Sarai Robert RN RN ak1 Soha Mann, BIJU RN tw2 Simon Yo RN RN jl7 Corrections: (The following items were deleted from the chart) 12/24 11:16 09:09 Hospitalization Ordered by Luigi Nixon DO for Inpatient Admission. Preliminary bd diagnosis is Left sided colitis with rectal bleeding. Bed requested for Telemetry/MedSurg (Inpatient). Status is Inpatient Admission. Condition is Stable. Problem is an acute exacerbation. Symptoms have worsened. UTI on Admission? No. snw 12:44 11:16 12/24/2017 09:09 Hospitalization Ordered by Luigi Nixon DO for Inpatient jl7 Admission. Preliminary diagnosis is Left sided colitis with rectal bleeding. Bed requested for Telemetry/MedSurg (Inpatient). Status is Inpatient Admission. Condition is Stable. Problem is an acute exacerbation. Symptoms have worsened. UTI on Admission? No. bd
[2017-12-24] MEDS ORDERED: CIPROFLOXACIN 400mg IV 400 MG/200 ML BAG IV ONE (09:18)
[2017-12-24] MEDS ORDERED: METRONIDAZOLE 500mg IVPB 500 MG/100 ML BAG IV ONE (09:18)
[2017-12-24] MEDS ORDERED: MORPHINE 4 MG/ML SYR ONE (09:26)
[2017-12-24] MEDS ORDERED: ACETAMINOPHEN 500 MG TAB PO PRN (09:40)
[2017-12-24] MEDS ORDERED: MORPHINE 2 MG/ML SYR IV PRN ×2 (09:40→17:11)
[2017-12-24] MEDS ORDERED: SODIUM CHLORIDE 0.9% 10ML INJ IV PRN (09:40)
[2017-12-24] MEDS ORDERED: ONDANSETRON 4 MG/2 ML VIAL ONE (10:19)
--- NOTE | 2017-12-24 11:15 | P.HP ---
Certification for Inpatient Patient admitted to: Inpatient With expected LOS: >2 Midnights Patient will require the following post-hospital care: None Practitioner: I am a practitioner with admitting privileges, knowledge of patient current condition, hospital course, and medical plan of care. Services: Services provided to patient in accordance with Admission requirements found in Title 42 Section 412.3 of the Code of Federal Regulations Patient History Date of Service: 12/24/17 Primary Care Provider: TIKI Yang; GI-Dr. Renteria Reason for admission: Abdominal pain, rectal bleeding History of Present Illness: 32-year-old male presented emergency room with abdominal pain and rectal bleeding. Patient with history of pancreatitis, GERD, hyperlipidemia and fatty liver. Patient reports that he start to feel ill with a stomach virus on Thursday. He reported some nausea and diarrhea at that time. Symptoms progressed. Last night he had increasing abdominal pain. Pain was about a 7/ 10. It was sharp and constant. Patient denied any fever, chills. Patient also reported some bloody diarrhea. Patient came to the ER for further evaluation. In the ER patient evaluated. White count 13.8, hemoglobin 14. Sodium 141, potassium 3.8. Lipase unremarkable. Pro calcitonin pending at this time. Blood sugar 109. CT scan revealed colitis to the cecum, ascending and transverse colon. Fatty liver noted. Patient admitted for further evaluation and treatment. When I saw the patient the ER, pain was much improved with medication. Patient reports that he has seen GI in the past. He has history of GERD with prior EGD in the past. He reports that he has been evaluated for pancreatitis. He had an ERCP last year. He had ate recent MRCP last month which was unremarkable. Patient has also been evaluated for Crohn's with serum antibodies. He reports that this has been negative. Allergies No Known Allergies Allergy (Unverified 04/10/17 10:36) Home medications list reviewed: Yes Home Medications: Atorvastatin Calcium [Lipitor] 40 mg PO DAILY 05/01/17 Metformin ER [Glucophage ER*] 500 mg PO DAILY 05/01/17 Omeprazole [Prilosec] 40 mg PO DAILY 05/01/17 Ondansetron [Zofran (Odt)*] 4 mg PO DAILY 05/01/17 - Past Medical/Surgical History -: Hyperlipidemia -: GERD -: Pancreatitis -: Fatty liver Past Surgical History: Patient denies surgical history Psychosocial/ Personal History: Patient is single. He has no children. He works at as an senior quality technician - Family History Mother -: Diabetes (Grandmother with diabetes) - Social History Smoking Status: Never smoker Alcohol use: Yes CD- Drugs: No Caffeine use: Yes Place of Residence: Home Review of Systems General: Weakness, As per HPI Eyes: Unremarkable ENT: Unremarkable Respiratory: Unremarkable Cardiovascular: Unremarkable Gastrointestinal: Nausea, Vomiting, Abdominal Pain, Hematochezia, As per HPI Genitourinary: Unremarkable Musculoskeletal: Unremarkable Integumentary: Unremarkable Neurological: As per HPI Lymphatics: Unremarkable Physical Examination - Physical Exam General: Alert, In no apparent distress, Oriented x3, Cooperative HEENT: Atraumatic, Normocephalic, PERRLA, Other (Dry mucous membranes) Neck: Supple, No Thyromegaly Respiratory: Clear to auscultation bilaterally, Normal air movement Cardiovascular: Normal pulses, Regular rate/rhythm Gastrointestinal: Normal bowel sounds, Non-distended, No masses, No rebound, No guarding, Tenderness (Tenderness to the abdomen) Musculoskeletal: No erythema, No tenderness, No warmth Integumentary: No tenderness/swelling, No erythema, No warmth, No cyanosis Neurological: Normal speech, Normal strength at 5/5 x4 extr, Normal tone, Normal affect Lymphatics: No axilla or inguinal lymphadenopathy - Studies Laboratory Data (last 24 hrs) 12/24/17 05:55: Creatinine 1.00 12/24/17 05:55: WBC 13.8 H, Hgb 14.7, Hct 42.0, Plt Count 256 12/24/17 05:55: Sodium 141, Potassium 3.8, BUN 10, Creatinine 1.00, Glucose 109 H, Total Bilirubin 0.8, AST 24, ALT 34, Alkaline Phosphatase 121 H, Amylase 22 L , Lipase 51 L Assessment and Plan - Plan Impression: Abdominal pain, nausea, vomiting, rectal bleeding secondary to cecum/ascending/ transverse colitis GERD Hyperlipidemia History of pancreatitis Fatty liver Plan: Patient will continue with IV antibiotic therapy and IV fluids. Will keep the patient NPO. Will monitor the patient closely. 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 Will check stool for bacteria and C diff colitis. Patient has been evaluated in the past with serum lab for Crohn's. Once pain and overall condition improved then will introduce clear liquid diet. Anticipate improvement over the next 2-3 days. Will monitor the patient closely. Will monitor hemoglobin as well. Patient may require blood if significantly anemic. Will monitor closely at this time. No need for surgical consultation at this time. Discharge Plan: Home Plan to discharge in: Greater than 2 days - Advance Directives Does patient have a Living Will: No Does patient have a Durable POA for Healthcare: No - Code Status/Comfort Care Code Status Assessed: Yes Time Spent Managing Pts Care (In Minutes): 55
[2017-12-24] MEDS: NA CHLORIDE 0.9% 1,000 ML IV SCH ×3 (14:16→20:35)
[2017-12-24 14:50] VITALS: BMI 35.9
[2017-12-24] MEDS: ENOXAPARIN 40 MG/0.4 ML SQ SCH (18:02)
[2017-12-24] MEDS: ONDANSETRON 4 MG/2 ML VIAL IV PRN (18:03)
[2017-12-24] MEDS: MORPHINE 2 MG/ML SYR IV PRN ×2 (18:03→21:46)
[2017-12-24] MEDS: METRONIDAZOLE 500mg IVPB 500 MG/100 ML BAG IV SCH (18:03)
[2017-12-24] MEDS: CIPROFLOXACIN 400mg IV 400 MG/200 ML BAG IV SCH (20:34)
[2017-12-25] MEDS: METRONIDAZOLE 500mg IVPB 500 MG/100 ML BAG IV SCH ×3 (00:43→18:06)
[2017-12-25] MEDS: MORPHINE 2 MG/ML SYR IV PRN ×3 (02:15→20:08)
[2017-12-25 06:00] LABS: Absolute Lymphocytes (CBC) 1.9 K/uL (0.7-4.9); Absolute Monocytes 1.4 K/uL (0.1-1.3); Absolute Neutrophil 8.9 K/uL (1.8-8.0); Basophils % 0.2 % (0-1.3); Eosinophils % 0.6 % (0-4.4); Hematocrit 39.5 % (39.6-49.0); Lymphocytes % 15.7 % (15.3-44.8); MCH 30.7 pg (27.0-35.0); MPV 7.8 fL (7.6-11.3); Monocytes % 11.2 % (3.3-12.3); RBC Red Blood Cell Count 4.49 M/uL (4.33-5.43)
[2017-12-25 06:23] LABS: BUN Blood Urea Nitrogen 9 mg/dL (7-18); Bicarbonate 26 mmol/L (21-32); Glucose Level 97 mg/dL (74-106); Potassium 3.7 mmol/L (3.5-5.1); Sodium Level 143 mmol/L (136-145)
[2017-12-25] MEDS: PANTOPRAZOLE 40 MG INJ IVP SCH (08:07)
[2017-12-25] MEDS: VENLAFAXINE HCL XR 75 MG CAP PO SCH (08:09)
[2017-12-25] MEDS: ONDANSETRON 4 MG/2 ML VIAL IV PRN ×2 (08:10→20:11)
[2017-12-25] MEDS: NACHLORIDE 0.45% 1,000 ML IV SCH ×3 (10:10→20:08)
[2017-12-25] MEDS: CIPROFLOXACIN 400mg IV 400 MG/200 ML BAG IV SCH ×2 (10:13→20:08)
--- NOTE | 2017-12-25 10:39 | RAD REPORT ---
EXAM DESCRIPTION: RAD - Abdomen 1 View (KUB) - 12/25/2017 10:25 am CLINICAL HISTORY: Abdominal pain, colitis, abnormal CT study COMPARISON: CT examination December 24 FINDINGS: Bowel gas pattern is non-specific. No obstruction, free air or pneumatosis. No gross abno rmality seen of the colon on plain film. No suspicious calcifications. No significant bony findings IMPRESSION: Negative KUB examination. Remnant colitis can still be present and occult on plain film.
--- NOTE | 2017-12-25 10:44 | RAD REPORT ---
EXAM DESCRIPTION: Mary Single View12/25/2017 10:26 am CLINICAL HISTORY: Abdominal pain/rule out TB COMPARISON: none FINDINGS: The lungs appear clear of acute infiltrate. The heart is normal size IMPRESSION: No radiographic evidence of active pulmonary TB
[2017-12-25] MEDS ORDERED: METHYLPREDNISOLONE 125 MG INJ IV ONE (13:05)
[2017-12-25] MEDS: NA CHLORIDE 0.9% IV SCH (13:21)
[2017-12-25] MEDS: METHYLPRED NA SUC IV SCH (13:21)
--- NOTE | 2017-12-25 14:42 | P.PN ---
Subjective Date of Service: 12/25/17 Primary Care Provider: TIKI Yang; GI-Dr. Renteria Chief Complaint: Abdominal pain, rectal bleeding Subjective: Other (Patient still with abdominal pain, reports some rectal bleeding.) Physical Examination - Vital Signs Temperature: 97.9 F Blood Pressure: 130/80 Pulse: 90 Respirations: 18 Pulse Ox (%): 98 - Physical Exam General: Alert, In no apparent distress, Oriented x3, Cooperative HEENT: Atraumatic Neck: Supple Respiratory: Clear to auscultation bilaterally, Normal air movement Cardiovascular: Normal pulses, Regular rate/rhythm Gastrointestinal: Hypoactive, Soft and benign, Non-distended, No masses, No rebound, No guarding, Tenderness (Still with some tenderness to the abdomen) Musculoskeletal: No erythema, No tenderness, No warmth Integumentary: No tenderness/swelling, No erythema, No warmth, No cyanosis Neurological: Normal speech, Normal strength at 5/5 x4 extr, Normal tone, Normal affect - Studies Microbiology Data (last 24 hrs): 12/24/17 07:20 Stool Fecal Leukocyte Stain - Final 12/24/17 07:20 Stool Clostridium difficile Toxin Assay - Final Medications List Reviewed: Yes Assessment & Plan Physician Review Additional Text: Impression: Abdominal pain, nausea, vomiting and rectal bleeding secondary to cecum/ ascending/transverse colitis GERD Hyperlipidemia History of pancreatitis Fatty liver Plan: Will continue with IV antibiotic therapy and IV fluids. Case discussed at length with gastroenterology. Patient has had workup in the past for crohns. He reports it has been negative. KUB and x-ray of the chest unremarkable. CRP elevated. Sed rate within normal range. Will obtain more stool samples. So far C diff culture negative. Will repeat C diff culture at this time. Advantages and risks addressed with patient and gastroenterology concerning the possibility for steroids. Both in agreement try steroids at this time. Will start Solu-Medrol 60 mg x1. Will continue with Solu-Medrol 40 mg in a 250 cc normal saline back to be continued over 24 hr. Will monitor patient closely on this. Continue with IV pain medication and PPI. Will monitor for any sudden changes.
[2017-12-25] MEDS: ENOXAPARIN 40 MG/0.4 ML SQ SCH (18:03)
[2017-12-26] MEDS: METRONIDAZOLE 500mg IVPB 500 MG/100 ML BAG IV SCH ×2 (00:09→08:21)
[2017-12-26 06:15] LABS: Absolute Lymphocytes (CBC) 1.4 K/uL (0.7-4.9); Absolute Neutrophil 11.1 K/uL (1.8-8.0); Basophils % 0.3 % (0-1.3); Hematocrit 40.4 % (39.6-49.0); Lymphocytes % 10.6 % (15.3-44.8); MCH 30.9 pg (27.0-35.0); MCV 88.4 fL (80-100); MPV 8.4 fL (7.6-11.3); Monocytes % 7.2 % (3.3-12.3); RBC Red Blood Cell Count 4.57 M/uL (4.33-5.43)
[2017-12-26 06:32] LABS: BUN Blood Urea Nitrogen 5 mg/dL (7-18); Bicarbonate 27 mmol/L (21-32); Glucose Level 123 mg/dL (74-106); Magnesium 2.3 mg/dL (1.8-2.4); Potassium 3.8 mmol/L (3.5-5.1); Sodium Level 139 mmol/L (136-145)
[2017-12-26 06:51] LABS: Blood Morphology Comment NOT SEEN (NOT SEEN); Platelet Estimate ADEQ
[2017-12-26 07:05] VITALS: O2SAT 96
[2017-12-26] MEDS: CIPROFLOXACIN 400mg IV 400 MG/200 ML BAG IV SCH (08:21)
[2017-12-26] MEDS: VENLAFAXINE HCL XR 75 MG CAP PO SCH (08:21)
[2017-12-26] MEDS: PANTOPRAZOLE 40 MG INJ IVP SCH (08:21)
--- NOTE | 2017-12-26 08:46 | P.DS ---
Admission Date: 12/24/17 Discharge Date: 12/26/17 Primary Care Provider: TIKI Yang; GI-Dr. Renteria Disposition: ROUTINE DISCHARGE Discharge Condition: GOOD Reason for Admission: Abdominal pain, rectal bleeding Consultations: GI-Dr. Renteria Procedures: CT scan: COMPARISON: Abdomen Pelvis W Contrast dated 11/20/2017; Abdomen Pelvis W Contrast dated 04/10/2017 TECHNIQUE: Biphasic CT imaging of the abdomen and pelvis was performed with 100 ml non-ionic IV contrast. All CT scans are performed using dose optimization technique as appropriate and may include automated exposure control or mA/KV adjustment according to patient size. FINDINGS: The lung bases are clear. Mild diffuse fatty liver is present. The spleen, adrenal glands and kidneys are within normal limits. Pancreatic atrophy is present. No bowel obstruction, free air, free fluid or abscess. Prominent thickening of the colon is present with multiple pericolonic lymph nodes seen. The findings are most severe in the region of the cecum but involves the ascending colon and transverse colon. The appendix is normal. No suspicious bony findings. IMPRESSION: Mild to moderate colitis. Fatty liver. Chest x-ray: No evidence of tuberculosis. Medical problem list: Abdominal pain and rectal bleeding secondary to cecum/ascending/transverse colitis Fatty liver Hyperlipidemia Depression/anxiety GERD Obesity, BMI 35.9 History of pancreatitis Brief History of Present Illness: 32-year-old male presented emergency room with abdominal pain and rectal bleeding. Patient with history of pancreatitis, GERD, hyperlipidemia and fatty liver. Patient reports that he start to feel ill with a stomach virus on Thursday. He reported some nausea and diarrhea at that time. Symptoms progressed. Last night he had increasing abdominal pain. Pain was about a 7/ 10. It was sharp and constant. Patient denied any fever, chills. Patient also reported some bloody diarrhea. Patient came to the ER for further evaluation. In the ER patient evaluated. White count 13.8, hemoglobin 14. Sodium 141, potassium 3.8. Lipase unremarkable. Pro calcitonin pending at this time. Blood sugar 109. CT scan revealed colitis to the cecum, ascending and transverse colon. Fatty liver noted. Patient admitted for further evaluation and treatment. When I saw the patient the ER, pain was much improved with medication. Patient reports that he has seen GI in the past. He has history of GERD with prior EGD in the past. He reports that he has been evaluated for pancreatitis. He had an ERCP last year. He had ate recent MRCP last month which was unremarkable. Patient has also been evaluated for Crohn's with serum antibodies. He reports that this has been negative. Hospital Course: Patient presented with abdominal pain and rectal bleeding. Patient was admitted for treatment. Patient received IV fluids and antibiotic treatment. CT scan revealed mild to moderate colitis to the cecum, ascending and transverse area. Patient responded to medical therapy. Case discussed at length with his toys inspector. Patient did receive a course of IV steroids. C diff culture negative. Blood cultures negative. At discharge patient was without any significant abdominal pain. He tolerated a diet well. At discharge he will continue with Flagyl 500 mg 1 pill 3 times a day and Cipro 5 mg 1 pill twice daily for 10 days. Patient will continue with a low residue diet. Patient will continue to monitor for abdominal pain and rectal bleeding. Recommendation is the patient follow up with gastroenterology within 1 week to follow up this hospitalization. Patient will require colonoscopy in 4-6 weeks to further address. Patient with history of fatty liver. CT scan revealed fatty liver. Recommendations for the patient follow up with GI as an outpatient to further address. Lifestyle modification education will be provided. Patient has hyperlipidemia. Patient will continue with his medication Lipitor 40 mg daily. Patient has history of depression/anxiety. Patient will continue with Venlafaxine XR 75 mg daily. Patient has GERD. Patient will continue with Prilosec 40 mg 1 pill once daily. Patient takes pain medication tramadol and Tylenol #3 as needed. Patient may continue with his medication. Vital Signs/Physical Exam: Temp Pulse Resp BP Pulse Ox 97.2 F 74 18 119/69 96 12/26/17 08:00 12/26/17 08:00 12/26/17 08:00 12/26/17 08:00 12/26/17 08:00 General: Alert, In no apparent distress, Oriented x3, Cooperative HEENT: Atraumatic, Mucous membr. moist/pink Neck: Supple, No Thyromegaly Respiratory: Clear to auscultation bilaterally, Normal air movement Cardiovascular: Normal pulses, Regular rate/rhythm Gastrointestinal: Normal bowel sounds, Soft and benign, Non-distended, No tenderness, No masses, No rebound, No guarding Musculoskeletal: No erythema, No tenderness, No warmth Integumentary: No tenderness/swelling, No erythema, No warmth, No cyanosis Neurological: Normal speech, Normal strength at 5/5 x4 extr, Normal tone, Normal affect Lymphatics: No axilla or inguinal lymphadenopathy Laboratory Data at Discharge: WBC 13.6 K/uL (4.3-10.9) H 12/26/17 06:01 Hgb 14.1 g/dL (13.6-17.9) 12/26/17 06:01 Hct 40.4 % (39.6-49.0) 12/26/17 06:01 Plt Count 247 K/uL (152-406) 12/26/17 06:01 Sodium 139 mmol/L (136-145) 12/26/17 06:01 Potassium 3.8 mmol/L (3.5-5.1) 12/26/17 06:01 BUN 5 mg/dL (7-18) L 12/26/17 06:01 Creatinine 0.70 mg/dL (0.55-1.3) 12/26/17 06:01 Glucose 123 mg/dL (74-106) H 12/26/17 06:01 Magnesium 2.3 mg/dL (1.8-2.4) 12/26/17 06:01 Total Bilirubin 0.8 mg/dL (0.2-1.0) 12/24/17 05:55 AST 24 U/L (15-37) 12/24/17 05:55 ALT 34 U/L (12-78) 12/24/17 05:55 Alkaline Phosphatase 121 U/L (45-117) H 12/24/17 05:55 Amylase 22 U/L (25-115) L 12/24/17 05:55 Lipase 51 U/L (73-393) L 12/24/17 05:55 Home Medications: Atorvastatin Calcium [Lipitor] 40 mg PO DAILY 05/01/17 Omeprazole [Prilosec] 40 mg PO DAILY 05/01/17 Ondansetron [Zofran (Odt)*] 4 mg PO DAILY PRN 05/01/17 Codeine/APAP [Tylenol #3*] 1 tab PO Q6HP PRN 12/24/17 Hyoscyamine Sulfate [Hyoscyamine Sulfate Sr] 1 tab PO Q6HP PRN 12/24/17 Venlafaxine HCl [Venlafaxine HCl ER] 75 mg PO DAILY 12/24/17 traMADol HCL [Ultram*] 50 mg PO BIDP PRN 12/24/17 Ciprofloxacin HCl [Cipro 500 MG Tablet] 500 mg PO BID #20 tab 12/26/17 metroNIDAZOLE [Flagyl] 500 mg PO Q8H #30 tablet 12/26/17 New Medications: Ciprofloxacin HCl [Cipro 500 MG Tablet] 500 mg PO BID #20 tab metroNIDAZOLE [Flagyl] 500 mg PO Q8H #30 tablet Patient Discharge Instructions: 1. Patient will need to follow up with his PCP in 1 week to follow up this hospitalization. 2. Patient presented with abdominal pain and rectal bleeding. Patient was admitted for treatment. Patient received IV fluids and antibiotic treatment. CT scan revealed mild to moderate colitis to the cecum, ascending and transverse area. Patient responded to medical therapy. Case discussed at length with his toys inspector. Patient did receive a course of IV steroids. C diff culture negative. Blood cultures negative. At discharge patient was without any significant abdominal pain or rectal bleeding. He tolerated a diet well. At discharge he will continue with Flagyl 500 mg 1 pill 3 times a day and Cipro 5 mg 1 pill twice daily for 10 days. Patient will continue with a low residue diet. Patient will continue to monitor for abdominal pain and rectal bleeding. Recommendation is the patient follow up with gastroenterology within 1 week to follow up this hospitalization. Patient will require colonoscopy in 4-6 weeks to further address. 3. Patient with history of fatty liver. CT scan revealed fatty liver. Recommendations for the patient follow up with GI as an outpatient to further address. Lifestyle modification education will be provided. 4. Patient has hyperlipidemia. Patient will continue with his medication Lipitor 40 mg daily. 5. Patient has history of depression/anxiety. Patient will continue with Venlafaxine XR 75 mg daily. 6. Patient has GERD. Patient will continue with Prilosec 40 mg 1 pill once daily. 7. Patient takes pain medication tramadol and Tylenol #3 as needed. Patient may continue with his medication. 8. Patient has BMI 35.9. Lifestyle modification education will be provided. Diet: Low residue diet Activity: Ad katia Time spent managing pt's care (in minutes): 55
[2017-12-26] MEDS ORDERED: METHYLPREDNISOLONE 40 MG INJ IV SCH (09:00)
[2017-12-26] MEDS: NACHLORIDE 0.45% 1,000 ML IV SCH (10:00)
[2017-12-26] MEDS: METHYLPRED NA SUC IV SCH (11:49)
[2017-12-26] MEDS: NA CHLORIDE 0.9% IV SCH (11:49)
[2017-12-26 12:20] VITALS: BP 117/66; TEMP 98.7
[2017-12-29 03:30] LABS: HBsAG Nonreactive (Nonreactive); Hepatitis A IgM Antibody Nonreactive
[2018-01-04 23:51] LABS: Lactoferrin, Stool 101.4 mcg/mL (<30.0)
== END 2017-12-26 15:08 | disposition home or self-care (01) | DRG 392 ==
LOC: ER 05:48 → ERHOLD 09:10 → 4TH 12:34
PROVIDERS: ADMIT Family Medicine; ATTEND Family Medicine
DX: K52.9 Noninfective gastroenteritis and colitis, unspecified (principal); K76.0 Fatty (change of) liver, not elsewhere classified; E78.5 Hyperlipidemia, unspecified; F41.8 Other specified anxiety disorders; K21.9 Gastro-esophageal reflux disease without esophagitis; E66.9 Obesity, unspecified; Z68.35 Body mass index [BMI] 35.0-35.9, adult
CPT/HCPCS: 36415; 71045; 74018; 74177; 80048; 80074; 80076; 81003; 81015; 82150; 83631; 83690; 83735; 84145; 85025; 85652; 86140; 87040; 87045; 87046; 87086; 87088; 87493; 89055; 96361; 96365; 96367; 96375; 99285; C9113; J0744; J1650; J2270; J2405; J2550; J2920; J2930; J3010; J7030; Q9967

== ENCOUNTER 2019-02-03 20:40 | Emergency (ER) | payer OTHER ==
[2019-02-03] MEDS ORDERED: ONDANSETRON 4 MG/2 ML VIAL ONE (21:10)
[2019-02-03 21:17] LABS: Absolute Lymphocytes (CBC) 2.9 K/uL (0.7-4.9); Basophils % 0.7 % (0-1.3); Hematocrit 43.8 % (39.6-49.0); Lymphocytes % 21.2 % (15.3-44.8); MPV 7.5 fL (7.6-11.3); RBC Red Blood Cell Count 5.09 M/uL (4.33-5.43)
[2019-02-03] MEDS ORDERED: HYDROMORPHONE HCL 2 MG/ML inj ONE (21:19)
[2019-02-03] MEDS ORDERED: NA CHLORIDE 0.9% 1,000 ML ONE (21:20)
[2019-02-03] MEDS ORDERED: NA CHLORIDE 0.9% 100 ML IV ONE (21:20)
[2019-02-03 21:36] LABS: Bilirubin Direct 0.3 mg/dL (0-0.2); Potassium 4.3 mmol/L (3.5-5.1); Protein, Total 7.8 g/dL (6.4-8.2)
--- NOTE | 2019-02-03 23:15 | ER ---
Nurse's Notes [facility] Name: Juvencio Cole Age: 33 yrs Sex: Male : 1985 Arrival Date: 02/03/2019 Time: 20:43 Bed 5 Private MD: Kevin Renteria H Diagnosis: Abdominal and pelvic pain Presentation: 02/03 20:53 Presenting complaint: Patient states: nausea and abd pain since Thursday. pt stated he ak1 has hx pancreatitis and sees Dr. Pepper. pt stated pain feels like pancreatitis. Transition of care: patient was not received from another setting of care. Onset of symptoms was January 31, 2019. Risk Assessment: Do you want to hurt yourself or someone else? Patient reports no desire to harm self or others. Initial Sepsis Screen: Does the patient meet any 2 criteria? No. Patient's initial sepsis screen is negative. Does the patient have a suspected source of infection? No. Patient's initial sepsis screen is negative. Care prior to arrival: None. 20:53 Acuity: CHUCK 3 ak1 20:53 Method Of Arrival: Ambulatory ak1 Triage Assessment: 20:57 General: Appears in no apparent distress. Behavior is calm, cooperative. ak1 Historical: - Allergies: 20:57 NKA; ak1 - Home Meds: 20:57 Omeprazole Oral [Active]; Effexor XR Oral [Active]; atorvastatin Oral [Active]; ak1 - PMHx: 20:57 GERD; Hyperlipidemia; Pancreatitis; ak1 - PSHx: 20:57 None; ak1 - Immunization history:: Adult Immunizations unknown. - Social history:: Smoking status: Patient/guardian denies using tobacco. - Ebola Screening: : No symptoms or risks identified at this time. Screenin:37 Abuse screen: Denies threats or abuse. Denies injuries from another. Nutritional mg2 screening: No deficits noted. Tuberculosis screening: No symptoms or risk factors identified. Fall Risk IV access (20 points). Assessment: 21:36 General: Appears in no apparent distress. comfortable, Behavior is calm, cooperative. mg2 Pain: Complains of pain in abdomen Pain radiates to back Pain currently is 7 out of 10 on a pain scale. Quality of pain is described as aching, Pain began gradually, Is intermittent. Neuro: Level of Consciousness is awake, alert, obeys commands, Oriented to person, place, time, situation. Cardiovascular: Capillary refill < 3 seconds Patient's skin is warm and dry. Respiratory: Airway is patent Respiratory effort is even, unlabored, Respiratory pattern is regular, symmetrical. GI: Bowel sounds present X 4 quads. Abd is soft and non tender Reports upper abdominal pain, nausea. : No signs and/or symptoms were reported regarding the genitourinary system. : No signs and/or symptoms were reported regarding the genitourinary system. EENT: No signs and/or symptoms were reported regarding the EENT system. Derm: Skin is intact, is healthy with good turgor, Skin is pink, warm \T\ dry. normal. Musculoskeletal: Circulation, motion, and sensation intact. Capillary refill < 3 seconds. 22:10 Reassessment: Patient appears in no apparent distress at this time. Patient and/or mg2 family updated on plan of care and expected duration. Pain level reassessed. Patient is alert, oriented x 3, equal unlabored respirations, skin warm/dry/pink. 22:33 Reassessment: Patient and/or family updated on plan of care and expected duration. Pain ea level reassessed. Patient is alert, oriented x 3, equal unlabored respirations, skin warm/dry/pink. Awaiting on CT results. 22:52 Reassessment: Patient states feeling better. mg2 Vital Signs: 20:51 BP 131 / 79; Pulse 99; Resp 18; Temp 97.3; Pulse Ox 98% on R/A; Weight 122.47 kg (R); ak1 Height 5 ft. 11 in. (180.34 cm); Pain 7/10; 22:10 BP 120 / 71; Pulse 100; Resp 18; Pulse Ox 97% on R/A; mg2 23:36 BP 119 / 72; Pulse 100; Resp 16; Temp 97.6; Pulse Ox 100% on R/A; ak1 20:51 Body Mass Index 37.66 (122.47 kg, 180.34 cm) ak1 ED Course: 20:43 Patient arrived in ED. es 20:43 Kevin Renteria MD is Private Physician. es 20:45 Jason Nunes, BIJU is Primary Nurse. mg2 20:51 Arm band placed on Patient placed in an exam room, on a stretcher, Patient notified of ak1 wait time. 20:56 Triage completed. ak1 20:59 Cuate Cortez MD is Attending Physician. kdr 21:17 Radiology exam delayed due to lab results not completed at this time. (BUN/Creatinine). vm2 21:27 No provider procedures requiring assistance completed. Inserted saline lock: 20 gauge mg2 in right antecubital area, using aseptic technique. Blood collected. 21:37 Patient has correct armband on for positive identification. Pulse ox on. NIBP on. Door mg2 closed. 22:09 CT Abd/Pelvis - IV Contrast Only In Process Unspecified. EDMS 23:14 Kevin Renteria MD is Referral Physician. kdr 23:36 IV discontinued, intact, bleeding controlled, No redness/swelling at site. Pressure ak1 dressing applied. Administered Medications: 21:18 Drug: Zofran 4 mg Route: IVP; Site: right antecubital; mg2 22:09 Follow up: Response: No adverse reaction; Marked relief of symptoms mg2 21:27 Drug: NS 0.9% 1000 ml Route: IV; Rate: 1 bolus; Site: right antecubital; mg2 23:37 Follow up: IV Status: Completed infusion; IV Intake: 1000ml ak1 21:27 Drug: Dilaudid 2 mg Route: IVP; Site: right antecubital; mg2 22:00 Follow up: Response: No adverse reaction; Pain is decreased ea Intake: 23:37 IV: 1000ml; Total: 1000ml. ak1 Outcome: 23:15 Discharge ordered by . kdr 23:37 Discharged to home ambulatory, with family. ak1 23:37 Condition: good 23:37 Discharge instructions given to patient, family, Instructed on discharge instructions, follow up and referral plans. no drinking with medication, no driving heavy equipment, medication usage, Demonstrated understanding of instructions, follow-up care, medications, Prescriptions given X 2. 23:38 Patient left the ED. ea Signatures: Dispatcher [employer] Cuate Cortez MD MD kdr Salyer, Edna es Krenek, Amber RN RN ak1 Jeannine Luna 2 Violette Tejada RN RN ea Gardose, Michele, RN RN mg2
--- NOTE | 2019-02-03 23:15 | EDPHYS ---
Physician Documentation [facility] Name: Jvuencio Cole Age: 33 yrs Sex: Male : 1985 Arrival Date: 02/03/2019 Time: 20:43 Bed 5 Private MD: Kevin Renteria H ED Physician Cuate Cortez HPI: 02/04 01:20 This 33 yrs old Male presents to ER via Ambulatory with complaints of kdr Abdominal Pain, Nausea. 01:20 The patient presents to the emergency department with nausea, vomiting, abdominal pain, kdr of the epigastric area, right upper quadrant and left upper quadrant. Onset: The symptoms/episode began/occurred acutely. 01:26 Possible causes: unknown, flare up of bowel problem, Pancreatitis. The symptoms are kdr aggravated by food , The symptoms are alleviated by nothing. Associated signs and symptoms: Pertinent positives: abdominal pain, nausea, vomiting. The patient has experienced similar episodes in the past, multiple times. The patient has not recently seen a physician. Historical: - Allergies: 02/03 20:57 NKA; ak1 - Home Meds: 20:57 Omeprazole Oral [Active]; Effexor XR Oral [Active]; atorvastatin Oral [Active]; ak1 - PMHx: 20:57 GERD; Hyperlipidemia; Pancreatitis; ak1 - PSHx: 20:57 None; ak1 - Immunization history:: Adult Immunizations unknown. - Social history:: Smoking status: Patient/guardian denies using tobacco. - Ebola Screening: : No symptoms or risks identified at this time. ROS: 02/04 01:26 Constitutional: Negative for fever, chills, and weight loss, Eyes: Negative for injury, kdr pain, redness, and discharge, Neck: Negative for injury, pain, and swelling, Cardiovascular: Negative for chest pain, palpitations, and edema, Respiratory: Negative for shortness of breath, cough, wheezing, and pleuritic chest pain, Back: Negative for injury and pain, : Negative for injury, bleeding, discharge, and swelling, MS/Extremity: Negative for injury and deformity, Skin: Negative for injury, rash, and discoloration, Neuro: Negative for headache, weakness, numbness, tingling, and seizure activity. Psych: Negative for depression, anxiety, suicide ideation, homicidal ideation, and hallucinations, Allergy/Immunology: Negative for hives, rash, and allergies, Endocrine: Negative for neck swelling, polydipsia, polyuria, polyphagia, and marked weight changes, Hematologic/Lymphatic: Negative for swollen nodes, abnormal bleeding, and unusual bruising. Abdomen/GI: Positive for abdominal pain, nausea and vomiting, Negative for diarrhea, constipation, abdominal distension. Exam: 01:26 Constitutional: This is a well developed, well nourished patient who is awake, alert, kdr and in no acute distress. Head/Face: Normocephalic, atraumatic. Eyes: Pupils equal round and reactive to light, extra-ocular motions intact. Lids and lashes normal. Conjunctiva and sclera are non-icteric and not injected. Cornea within normal limits. Periorbital areas with no swelling, redness, or edema. Neck: Trachea midline, no thyromegaly or masses palpated, and no cervical lymphadenopathy. Supple, full range of motion without nuchal rigidity, or vertebral point tenderness. No Meningismus. Chest/axilla: Normal chest wall appearance and motion. Nontender with no deformity. No lesions are appreciated. Cardiovascular: Regular rate and rhythm with a normal S1 and S2. No gallops, murmurs, or rubs. Normal PMI, no JVD. No pulse deficits. Respiratory: Lungs have equal breath sounds bilaterally, clear to auscultation and percussion. No rales, rhonchi or wheezes noted. No increased work of breathing, no retractions or nasal flaring. Back: No spinal tenderness. No costovertebral tenderness. Full range of motion. Skin: Warm, dry with normal turgor. Normal color with no rashes, no lesions, and no evidence of cellulitis. MS/ Extremity: Pulses equal, no cyanosis. Neurovascular intact. Full, normal range of motion. Neuro: Awake and alert, GCS 15, oriented to person, place, time, and situation. Cranial nerves II-XII grossly intact. Motor strength 5/5 in all extremities. Sensory grossly intact. Cerebellar exam normal. Normal gait. Psych: Awake, alert, with orientation to person, place and time. Behavior, mood, and affect are within normal limits. 01:26 Abdomen/GI: Inspection: abdomen appears normal, Bowel sounds: normal, diminished, in all quadrants, Palpation: mild abdominal tenderness, in the epigastric area, right upper quadrant and left upper quadrant. Vital Signs: 02/03 20:51 BP 131 / 79; Pulse 99; Resp 18; Temp 97.3; Pulse Ox 98% on R/A; Weight 122.47 kg (R); ak1 Height 5 ft. 11 in. (180.34 cm); Pain 7/10; 22:10 BP 120 / 71; Pulse 100; Resp 18; Pulse Ox 97% on R/A; mg2 23:36 BP 119 / 72; Pulse 100; Resp 16; Temp 97.6; Pulse Ox 100% on R/A; ak1 20:51 Body Mass Index 37.66 (122.47 kg, 180.34 cm) ak1 MDM: 23:15 Patient medically screened. kdr 02/04 01:26 Data reviewed: vital signs, nurses notes, lab test result(s), radiologic studies. kdr Counseling: I had a detailed discussion with the patient and/or guardian regarding: the historical points, exam findings, and any diagnostic results supporting the discharge/admit diagnosis, lab results, radiology results, the need for outpatient follow up. 02/03 20:50 Order name: Basic Metabolic Panel; Complete Time: 22:16 mg2 02/03 20:50 Order name: CBC with Diff; Complete Time: 22:16 mg2 02/03 20:50 Order name: Creatinine for Radiology; Complete Time: 22:16 mg2 02/03 20:50 Order name: Hepatic Function; Complete Time: 22:16 mg2 02/03 20:50 Order name: Lipase; Complete Time: 22:16 mg2 02/03 21:14 Order name: CT Abd/Pelvis - IV Contrast Only 02/03 20:50 Order name: IV Saline Lock; Complete Time: 21:18 mg2 02/03 20:50 Order name: Labs collected and sent; Complete Time: 21:18 mg2 Administered Medications: 02/03 21:18 Drug: Zofran 4 mg Route: IVP; Site: right antecubital; mg2 22:09 Follow up: Response: No adverse reaction; Marked relief of symptoms mg2 21:27 Drug: NS 0.9% 1000 ml Route: IV; Rate: 1 bolus; Site: right antecubital; mg2 23:37 Follow up: IV Status: Completed infusion; IV Intake: 1000ml ak1 21:27 Drug: Dilaudid 2 mg Route: IVP; Site: right antecubital; mg2 22:00 Follow up: Response: No adverse reaction; Pain is decreased ea Disposition: 02/03/19 23:15 Discharged to Home. Impression: Abdominal and pelvic pain. - Condition is Stable. - Discharge Instructions: Abdominal Pain, Adult, [id number]. - Prescriptions for Zofran ODT 4 mg Oral tablet,disintegrating - place 2 tablet by TRANSLINGUAL route every 8 hours As needed; 16 tablet. Tylenol- Codeine #4 300-60 mg Oral Tablet - take 1 tablet by ORAL route every 6 hours As needed; 16 tablet. - Medication Reconciliation Form, Thank You Letter, Prescription Opioid Use, Work release form form. - Follow up: Private Physician; When: 2 - 3 days; Reason: If symptoms return, Further diagnostic work-up, Recheck today's complaints, Continuance of care, Re-evaluation by your physician. Follow up: Kevin Renteria MD; When: 2 - 3 days; Reason: If symptoms return, Further diagnostic work-up, Recheck today's complaints, Continuance of care, Re-evaluation by your physician. - Problem is an acute exacerbation. - Symptoms have improved. Signatures: Dispatcher [employer] EDMS Cuate Cortez MD MD [facility] Sarai Robert RN RN ak1 Violette Tejada RN RN Raymond Vogt MD MD Jason Nunse RN RN mg2 Corrections: (The following items were deleted from the chart) 23:38 23:15 02/03/2019 23:15 Discharged to Home. Impression: Abdominal and pelvic pain. ea Condition is Stable. Forms are Medication Reconciliation Form, Thank You Letter, Antibiotic Education, Prescription Opioid Use. Follow up: Private Physician; When: 2 - 3 days; Reason: If symptoms return, Further diagnostic work-up, Recheck today's complaints, Continuance of care, Re-evaluation by your physician. Follow up: Kevin Renteria; When: 2 - 3 days; Reason: If symptoms return, Further diagnostic work-up, Recheck today's complaints, Continuance of care, Re-evaluation by your physician. Problem is an acute exacerbation. Symptoms have improved. kdr
[2019-02-04 02:00] VITALS: BP 119/72; TEMP 97.6; O2SAT 100
--- NOTE | 2019-02-04 12:06 | RAD REPORT ---
EXAM DESCRIPTION: CT - Abdomen Pelvis W Contrast - 02/04/2019 4:19 am CLINICAL HISTORY: The patient is 33 years old and is Male; ABD PAIN TECHNIQUE: Axial computed tomography images of the abdomen and pelvis with intravenous contrast. S agittal and coronal reformatted images were created and reviewed. This CT exam was performed using one or more of the following dose reduction techniques: automated exposure control, adjustment of t he mA and/or kV according to patient size, and/or use of iterative reconstruction technique. COMPARISON: CT abdomen and pelvis with IV and oral contrast dated August 16, 2018. FINDINGS: LUNG BASES: Normal bases are clear. HEART: Visualized heart is normal. ABDOMEN: LIVER: Unremarkable. No mass. GALLBLADDER AND BILE DUCTS: Unremarkable. No calcified stones. No ductal dilation. PANCREAS: Unchanged diffuse fatty infiltration of the pancreas. No ductal dilation. SPLEEN: Unremarkable. No splenomegaly. ADRENALS: Unremarkable. No mass. KIDNEYS AND URETERS: Unremarkable. No solid mass. No hydronephrosis. STOMACH AND BOWEL: Unremarkable. No obstruction. No mucosal thickening. PELVIS: APPENDIX: The appendix is seen and is within normal limits. BLADDER: Bladder is decompressed. REPRODUCTIVE: Unremarkable as visualized. ABDOMEN and PELVIS: INTRAPERITONEAL SPACE: Unremarkable. No free air. No significant fluid collection. BONES/JOINTS: Unchanged T11-12 degenerative changes. No acute fracture. No dislocation. SOFT TISSUES: Small fat-containing umbilical hernia. VASCULATURE: Unremarkable. No abdominal aortic aneurysm. LYMPH NODES: Unremarkable. No enlarged lymph nodes. IMPRESSION: 1. No acute abdominal or pelvic abnormality. 2. Unchanged diffuse fatty infiltration of the pancreas. Electronically signed by: Temo Becker DO 02/03/2019 10:30 PM CDT Due to temporary technical issues with the PACS/Fluency reporting system, reports are being signed by the in house radiologist as a courtesy to ensure prompt reporting. The interpreting radiologist is f ully responsible for the content of the report.
== END 2019-02-03 23:38 | disposition home or self-care (01) ==
LOC: ER 20:40
DX: R10.2 Pelvic and perineal pain (principal); E78.5 Hyperlipidemia, unspecified; K21.9 Gastro-esophageal reflux disease without esophagitis
CPT/HCPCS: 96361; 85025; 80048; 36415; 80076; 83690; 74177; 96375; 96374; 99284; Q9967; J1170; J7030; J2405